=== PATIENT | male | born 2000 | race American Indian/Alaskan Native ===

== ENCOUNTER 2024-02-13 21:12 | Emergency (ER) | payer MEDICAID ==
[~2024-02-13] VITALS: Ht 190.5 cm; Wt 141.0 kg
[2024-02-13 22:07] VITALS: O2SAT 97
[2024-02-13 23:53] VITALS: TEMP 98.6
[2024-02-14 00:28] VITALS: BP 129/72; PULSE 83; RESP 12
[2024-02-14] MEDS: IBUPROFEN 600MG TABLET PO ONE (00:28)
[2024-02-14] MEDS ORDERED: NAPR220C61 MT (01:32)
== END 2024-02-14 01:42 | disposition home or self-care (01) ==
LOC: ER 21:12
DX: M25.511 Pain in right shoulder (principal); G89.11 Acute pain due to trauma; V49.59XA Passenger injured in collision with other motor vehicles in traffic accident, initial encounter; Y93.89 Activity, other specified; Y92.89 Other specified places as the place of occurrence of the external cause; Y99.8 Other external cause status
CPT/HCPCS: 73030; 99283